=== PATIENT | female | born 1965 ===

== ENCOUNTER 2018-05-28 17:27 | Emergency (ER) | payer OTHER ==
[2018-05-28 17:38] VITALS: BMI 33.0
[2018-05-28 17:39] VITALS: RESP 18
[2018-05-28] MEDS ORDERED: Bacitracin 500 Units/gm Oint Foilpak UD TOP STA (17:45)
[2018-05-28] MEDS ORDERED: Tetanus/Diphtheria Toxoids 0.5 ml Syringe IM ONE ×2 (17:45→18:21)
--- NOTE | 2018-05-28 18:09 | C.PDOC ---
History Of Present Illness 52 year old female presents to the ER after she fell and injured her right hand, bilateral knee, and right ribs. Denies head injury, weakness, or numbness. Patient is not UTD with tetanus. - HPI Time Seen by Provider: 05/28/18 17:39 Chief Complaint (Nursing): Upper Extremity Problem/Injury History Per: Patient History/Exam Limitations: no limitations Onset/Duration Of Symptoms: Hrs Injury Occurred (Timing): Just Before Arrival Location Of Injury: Right: Chest (Rib), Hand, Knee, Left: Knee Recent travel outside of the [place]: No - Fall Fall:Prior To Injury: Tripped Past Medical History Reviewed: Historical Data, Nursing Documentation, Vital Signs Vital Signs: Last Vital Signs Temp 98.3 F 05/28/18 17:37 Pulse 92 H 05/28/18 17:37 Resp 18 05/28/18 17:37 BP 112/76 05/28/18 17:37 Pulse Ox 98 05/28/18 17:37 - Medical History PMH: Gastritis, HTN, Hypercholesterolemia (NOT ON MEDS. AT THIS TIME) Denies: Chronic Kidney Disease Surgical History: Endoscopy - [facility] Procedures BREAST DX PROCEDURE NEC (03/29/14) DX ULTRASOUND-THORAX NEC (04/14/14) ESOPHAGOGASTRODUODENOSCOPY [EGD] W/CLOSED BIOPSY (11/24/14) LOCAL EXCIS BREAST LES (04/14/14) PERCUTAN NEEDLE BIOPSY OF BREAST (03/29/14) Family History: States: Unknown Family Hx - Social History Hx Tobacco Use: No Hx Alcohol Use: No Hx Substance Use: No - Immunization History Hx Tetanus Toxoid Vaccination: No Hx Influenza Vaccination: No Hx Pneumococcal Vaccination: No Review Of Systems Musculoskeletal: Positive for: Hand Pain (Right), Other (Rigth ribs, bilateral knees) Skin: Positive for: Other (Abrasions) Neurological: Negative for: Weakness, Numbness Physical Exam - Physical Exam Appears: Non-toxic Skin: Warm, Dry Head: Atraumatic, Normacephalic Eye(s): bilateral: Normal Inspection Extremity: Normal ROM (x4), Capillary Refill (<2 seconds), Other (Abrasions to bilateral knees) Pulses: Left Radial: Normal, Right Radial: Normal, Left Dorsalis Pedis: Normal, Right Dorsalis Pedis: Normal Neurological/Psych: Oriented x3, Normal Speech, Normal Motor, Normal Sensation Gait: Steady ED Course And Treatment O2 Sat by Pulse Oximetry: 98 (Room air) Pulse Ox Interpretation: Normal - Other Rad Right hand x-ray X-Ray: Viewed By Me, Read By Radiologist Interpretation: PROCEDURE: Right Hand Radiographs. HISTORY: fall. COMPARISON: None available. FINDINGS: BONES: No acute displaced fracture. JOINTS: No dislocation. SOFT TISSUES: Unremarkable. No evidence of radiopaque foreign body. OTHER FINDINGS: None. IMPRESSION: No acute displaced fracture, dislocation, or significant joint effusion identified. If symptoms persist, or if there is continued clinical concern, x-ray follow-up in 7-10 days should be considered. Bilateral knee x-ray X-Ray: Interpreted by Me, Viewed By Me Interpretation: No acute fractures or dislocations. CXR X-Ray: Interpreted by Me, Viewed By Me Interpretation: No acute fractures or dislocations. Progress Note: Right hand x-ray, rib x-ray, and knee x-rays ordered, results were negative. Wounds were cleansed and dress, bacitracin applied, tylenol and tetanus vaccination administered. She is resting comfortably in the ER in no acute distress, vitals are stable, will discharge home with instructions to follow up with PMD for further evaluation. Disposition - Disposition Referrals: Evaristo Carter MD [Medical Doctor] - Disposition: HOME/ ROUTINE Disposition Time: 18:20 Condition: STABLE Additional Instructions: Follow up with PMD within 1-2 days. return to ED if feel worse. Prescriptions: Bacitracin OINT 1 applic TP TID #45 g Ibuprofen [Motrin Tab] 600 mg PO Q8 #30 tab Instructions: Contusion (DC), Skin Abrasions, Bruised Rib (DC) Forms: [employer] (Sen[place]e) - Clinical Impression Clinical Impression: Multiple contusions, Abrasions of multiple sites - PA / PROSTHETIST / Resident Statement MD/DO has reviewed & agrees with the documentation as recorded. - Scribe Statement The provider has reviewed the documentation as recorded by the Scribe Bob Izquierdo All medical record entries made by the Scribe were at my direction and personally dictated by me. I have reviewed the chart and agree that the record accurately reflects my personal performance of the history, physical exam, medical decision making, and the department course for this patient. I have also personally directed, reviewed, and agree with the discharge instructions and disposition.
[2018-05-28] MEDS ORDERED: Bacitracin 500 Units/gm Oint Foilpak UD ONE (18:21)
[2018-05-28 18:40] VITALS: BP 115/73; PULSE 88; TEMP 97.9
--- NOTE | 2018-05-28 19:01 | RAD ---
Date of service: 05/28/2018 PROCEDURE: Radiographs of the Chest and Right Ribs. HISTORY: fall COMPARISON: Chest x-ray performed 04/14/15 TECHNIQUE: Frontal radiograph of the chest and multiple oblique radiographs of the right ribs were obtained. FINDINGS: Examination limited by habitus. RIGHT RIBS: No appreciable displaced right rib fracture. LUNGS: No focal consolidation, significant pleural effusion, or definite pneumothorax identified. Tiny probable scattered calcified granulomas. Please note that chest x-ray has limited sensitivity for the detection of pulmonary masses. PLEURA: No significant pleural effusion. No definite pneumothorax. CARDIOVASCULAR: Heart size appears top normal. OTHER FINDINGS: Degenerative changes of the spine. IMPRESSION: No appreciable displaced right rib fracture.
[2018-05-29 07:18] VITALS: O2SAT 98
--- NOTE | 2018-05-29 08:36 | RAD ---
Date of service: 05/28/2018 PROCEDURE: Bilateral Knee Radiographs. HISTORY: fall COMPARISON: None. FINDINGS: BONES: Right Knee: No acute fracture. Left Knee: No acute fracture. JOINTS: Right Knee: Mild medial compartment degenerative osteoarthritis. Left knee: Mild medial compartment degenerative osteoarthritis. SOFT TISSUES: Right Knee: Normal. Left Knee: Normal. JOINT EFFUSION: Right Knee: None. Left Knee: None. OTHER FINDINGS: None. IMPRESSION: No acute fracture or dislocation.
== END 2018-05-28 18:44 | disposition home or self-care (01) ==
LOC: C.ER 17:27
DX: S60.221A Contusion of right hand, initial encounter (principal); S80.02XA Contusion of left knee, initial encounter; S80.01XA Contusion of right knee, initial encounter; S80.212A Abrasion, left knee, initial encounter; S80.211A Abrasion, right knee, initial encounter; W01.0XXA Fall on same level from slipping, tripping and stumbling without subsequent striking against object, initial encounter